=== PATIENT | male | born 2000 | race Caucasian/White ===

== ENCOUNTER 2024-11-29 09:06 | Emergency (ER) | payer OTHER, SELFPAY ==
--- NOTE | ~2024-11-29 | XR_ITS ---
EXAMINATION: XR chest 1V portable DATE: 11/29/2024 09:31 INDICATION: Cough and chest pain. TECHNIQUE: A single frontal view of the chest was obtained. COMPARISON: None. FINDINGS: There are airspace opacities in left upper lobe, consistent with pneumonia. No pleural effu obinna or pneumothorax. The heart size is normal. IMPRESSION: 1. Left upper lobe pneumonia. Reviewed, dictated and finalized at location A. THERAPY CERTIFIED SUPERVISOR
[2024-11-29 09:10] VITALS: BP 138/90; PULSE 84; RESP 16; TEMP 37; O2SAT 98
--- NOTE | 2024-11-29 09:15 | ECG_ITS ---
Test Date: 2024-11-29 09:15:56 Measurements Intervals [place] Rate: 89 P: 62 NJ: 135 QRS: 71 QRSD: 121 T: 35 QT: 334 QTc: 407 Interpretive Statements SINUS RHYTHM POSSIBLE LEFT ATRIAL ENLARGEMENT INCOMPLETE RIGHT BUNDLE BRANCH BLOCK BORDERLINE ST-T WAVE ABNORMALITY- ANTERIOR LEADS BASELINE ARTIFACT- I, II, AVR, AVL, V3 BORDERLINE ECG No previous ECG available for comparison Electronically Signed On 11-29-2024 09:40:14 PAINT BRUSH MAKER by Donta Dodge D.O.
[2024-11-29 09:20] VITALS: O2SAT 99
--- OUTSIDE RECORDS SUMMARY | 2024-11-29 09:30 | XMS_ITS | Continuity of Care Document ---
Author Organization [facility] cine Address [address] [address] Phone Care Team Providers Care Paper Grader Name Role Phone Luciano Lilly DO Unavailable Unavailable Allergies, Adverse Reactions, Alerts Substance Reaction Status Criticality CEPHALEXIN MONOHYDRATE Active No In formation amoxicillin Active No Information Penicillins Active No Information Medications Medication Instructions Dosage Effective Dates (start - stop) Status Comments paroxetine 20 mg tablet take 1 tablet (2 0MG) by oral route every day 20 MG - Active WG methylphenidate ER 20 mg tablet,extended release take 1 tablet (20MG) by oral route every day 20 MG - Active methylphenidate 10 mg tablet take 1 tablet (10MG) by oral route 1 times every day - Active Procedures Procedure Date OFFICE/OUTPATIENT VISIT, EST OFFICE/OUTPATIENT VISIT, NEW Advance Directives Directive Yes / No Effective Date File Name No Information Encounters Encounter Description Practice Location Reason(s) For Visit Diagnoses Date Provider Providers Copied on Encounter [facility], [address], [place], [id number], tel:[phone] [facility] No Information [address]. [address], [place], [id number], [place]. tel:[phone] OFFICE/OUTPAT IENT VISIT, EST [facility], [address], [place], [id number], tel:[phone] [facility] adhd (chief complaint) Attention deficit disorder of childhood with hyperactivity 3 No Information OFFICE/OUTPAT IENT VISIT, NEW [facility], [address] [facility] [address], [place], [place], [id number], [place] tel:[phone] [facility] adhd (chief complaint) Attention deficit disorder of childhood with hyperactivity 3 No Information Family History Family Member Type Diagnosis Age At Onset Problem (finding) Family history of raise d blood lipids Problem (finding) Family history of breas t cancer Problem (finding) No family history of AD D/ADHD Payers Payer name Insurance type Covered alliance party ID Authorjasvir dixon(s) [place] Medicaid MC [id number] Social History Type Description Quantity Date Captured Comments Sex Male Smoking Status No Information Chief Complaint And Reason For Visit No Information Reason For Referral Reason For Referral No Information History Of Present Illness Encounter Date Complaint History Of Prese nt Illness adhd Onset: 5 Years A go. Quality of life: behaviors create problems at home and behaviors create problems at school. It occurs constantly. The problem is improving. Context: behaviors persist > 6 months and behaviors began before age 8. Symptom is aggravated by deadlines, distractions and tasks requiring attention to detail. Relieving factors include stimulant medications. Associated symptoms include bored easily, disorganization, distracted easily, excitability, fidgeting/squirming, restlessness and short attention span. Additional information: pt is needing refill of Methylphenidate. pt denies trouble with sleeping or eating.. adhd Onset: 7 Years A go. Quality of life: behaviors create problems at home, behaviors create problems at school and behaviors create problems socially. Context: behaviors began before age 8. Symptom is aggravated by deadlines, distractions, stress and tasks requiring attention to detail. Relieving factors include stimulant medications. Associated symptoms include bored easily, difficulty waiting turn, disorganization, distracted easily, excitability, fidgeting/squirming, impulsiveness, inattentiveness, loses/forgets things, restlessness, short attention span and talks excessively. Functional Status Date Functional Assessmen t No Information Instructions Date Instruction Additional Infor mation No Information Assessments Type Assessment Date No Information Patient Care Teams Name Effective Dates (start - stop) Status Members No Information
--- OUTSIDE RECORDS SUMMARY | 2024-11-29 09:30 | XMS_ITS | Clinical Summary ---
Author Organization 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 Gender Identity Not on file Sexual Orientation Not on file Last Filed Vital Signs Vital Sign Reading Time Taken Comments Blood Pressure 132/76 04/30/2021 5:29 PM CDT Pulse 96 04/30/2021 5:29 PM CDT Temperature 36.6 ??C (97.9 ??F) 04/30/2021 5:29 PM CD T Respiratory Rate 16 04/30/2021 5:29 PM CDT Oxygen Saturation 99% 04/30/2021 5:29 PM CDT Inhaled Oxygen Concentration - - Weight 69.3 kg (152 lb 12.5 oz) 04/30/2021 5:29 PM CDT Height 182.9 cm (6') 04/30/2021 5:29 PM CDT Body Mass Index 20.72 04/30/2021 5:29 PM CDT Plan of Treatment Not on file Insurance [facility] HMO/PPO Address: [id number] [place] [address] Care Teams Electrical Maintenance Technician Relationship Specialty Start Date End Date No, Physician PCP - General 04/30/21
--- OUTSIDE RECORDS SUMMARY | 2024-11-29 09:30 | XMS_ITS | Referral Summary ---
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 HMO/PPO Address: [id number] [place] [address] Care Teams Geophysical Operator Relationship Specialty Start Date End Date No, Physician PCP - General 04/30/21
--- OUTSIDE RECORDS SUMMARY | 2024-11-29 09:30 | XMS_ITS | Clinical Summary ---
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 Gender Identity Not on file Sexual Orientation Not on file Plan of Treatment Health Maintenance Due Date Last Done Comments Hepatitis C Virus (HCV) Screening 2001 TdaP Immunization 2001 Human Papillomavirus (HPV) Immunization (1 - Male 3-dose series) 2016 Meningococcal B Immunization (1 of 2 - Standard) 2017 Hepatitis B Immunization (1 of 3 - 19+ 3-dose series) 2020 Influenza Immunization (#1) 2024 SARS-COV-2 Immunization ( - season) 2024 Respiratory Syncytial Virus (RSV) Immunization (Adult) (1 - 1-dose 75+ series) 2076 Meningococcal Immunization (ACWY) Aged Out No longer eligible based on patient's age to complete this topic Pneumococcal Immunization Combined Aged Out No longer eligible based on patient's age to complete this topic Rotavirus Immunization Aged Out No lo nger eligible based on patient's age to complete this topic
--- NOTE | 2024-11-29 09:33 | ED_ITS ---
HPI - URI/Sore Throat General Chief Complaint: Upper Respiratory Infection Stated Complaint: cold sx Time Seen by Provider: 11/29/24 09:07 Source: patient Mode of arrival: ambulatory Limitations: no limitations History of Present Illness HPI Narrative: This is a 24-year-old male who presents to the ED for chief complaint of cough and pleuritic chest pain over the past couple of days. Patient states that the cough has been present for the past few days and started to become productive. Reports yellow phlegm with the cough. States that yesterday and today started noticing the cough started hurting in the chest. States that when he coughs he has chest pain that radiates into the intrascapular area. Denies exertional chest pain or shortness of breath. Endorses low-grade fevers with temperatures in the 99-100.2 range. Denies any medical history. Related Data Home Medications ?Medication ?Instructions ?Recorded ?Confirmed ?Last Taken ?Type buspirone 15 mg tablet mg PO 09/09/24 09/10/24 Unknown History quetiapine 25 mg tablet mg PO 09/09/24 09/10/24 Unknown History Allergies Allergy/AdvReac Type Severity Reaction Status Date / Time No Known Allergies Allergy Verified 11/29/24 09:13 Review of Systems Review of Systems: All systems as dictated in HPI [facility] Past Medical History Medical History Trichotillomania Family History Family History Mother Family history of mental disorder Grandparent Family history of mental disorder Hypertension Family history of elevated blood lipids Family history of malignant neoplasm of breast Social History Social History Smoking status: Never smoker Exam Narrative: GENERAL: Well-appearing, well-nourished, and in no acute distress. HEAD: Normocephalic, atraumatic. EYES: PERRLA and EOMI. ENT: Nares clear, no rhinorrhea or epistaxis. Mucous membranes moist. Oropharynx without tonsillar hypertrophy exudate or other lesions. NECK: Supple. No adenopathy or masses. CHEST: No respiratory distress. Clear to auscultation. No wheezes rales or rhonchi HEART: Regular rate and rhythm. No murmur heard. Normal peripheral pulses. ABDOMEN: Soft, nontender, nondistended, normal active bowel sounds. MSK: Normal range of motion. No edema. SKIN: Warm, dry, no rash. NEURO: Alert and oriented x4. No focal deficits. PSYCH: Normal mood and affect. Course Vital Signs Vital signs: Vital Signs Temperature 98.6 F 11/29/24 09:10 Pulse Rate 84 11/29/24 09:10 Respiratory Rate 16 11/29/24 09:10 Blood Pressure 138/90 11/29/24 09:10 Pulse Oximetry 98 11/29/24 09:10 Oxygen Delivery Room Air 11/29/24 09:10 Temperature 98.6 F 11/29/24 09:10 Pulse Rate 84 11/29/24 09:10 Respiratory Rate 16 11/29/24 09:10 Blood Pressure 138/90 11/29/24 09:10 Pulse Oximetry 99 11/29/24 09:20 Oxygen Delivery Room Air 11/29/24 09:20 MDM - URI/Sore Throat MDM Narrative Medical decision making narrative: This is a 24-year-old male who presents to the ED for chief complaint of productive cough and pleuritic chest pain. Vitals are normal. Exam is benign. EKG shows sinus rhythm with nonspecific T-wave changes. Perc rule negative for PE. Chest x-ray shows overt left upper lobe pneumonia which is consistent with his presentation today. Does not appear to be a cardiac related chest pain such as ACS. Was given Toradol here for pain control. Patient will be given Augmentin and doxy cycling prescriptions. Pt will be discharged in stable condition. Return precautions given and supportive measures discussed. Pt is understanding and agreeable with plan for discharge and follow-up with PCP. Lab Data Labs: Lab Results 11/29/24 Range/Units 09:27 Influenza A (RT-PCR) Pending Influenza B (RT-PCR) Pending RSV (RT-PCR) Pending SARS-CoV-2 RNA (RT-PCR) Pending ECG Data EKG #1: ECG completion date: 11/29/24 ECG completion time: 09:15 Prior ECG tracings: not available for review Interpretation: Sinus rhythm Rate [address] and T-wave changes, inversions seen in V3 No acute ischemic findings Discharge Plan Discharge Clinical Impression: Pneumonia Qualifiers: Pneumonia type: due to unspecified organism Laterality: left Lung location: upper lobe of lung Qualified Code(s): J18.9 - Pneumonia, unspecified organism Patient Disposition: Home, Self-Care Condition: Stable Instructions: Antibiotic Form, Bacterial Pneumonia (DC) Additional Instructions: Your exam today does show a pneumonia of the left side. Please take antibiotics as prescribed and follow-up with your PCP on this issue. Continue to take Tylenol and ibuprofen as needed for pain and fevers. If you have any new or worsening symptoms please return to the ER for further evaluation. Patient Language: Armenian Prescriptions: New amoxicillin-pot clavulanate 875-125 mg tablet 1 tablet PO Q12H Qty: 14 0RF doxycycline hyclate 100 mg capsule 100 mg PO BID 7 Days Qty: 14 0RF No Action buspirone 15 mg tablet PO quetiapine 25 mg tablet PO sertraline 100 mg tablet 100 mg PO DAILY 90 Days Qty: 90 3RF Follow-up/Referrals: Angel Quan DO [Primary Care Provider] - Time of Disposition: 09:48
[2024-11-29] MEDS: KETOROLAC 15 MG/ML VIAL (*BKC) IV PUSH (09:35)
[2024-11-29 10:21] LABS: Influenza A QL RT-PCR Negative (Negative); Influenza B QL RT-PCR Negative (Negative); RSV RNA, RT-PCR Negative (Negative); SARS-CoV-2 RNA PCR Negative (Negative)
[2024-11-29 10:27] VITALS: BP 122/81; PULSE 77; RESP 14; O2SAT 98
--- OUTSIDE RECORDS SUMMARY | 2024-11-29 10:36 | XMS_ITS | Continuity of Care Document ---
Author Organization [facility] cine Address [address] [place] [address] Phone Care Team Providers Care Machine Cloth Examiner Name Role Phone Luciano Lilly DO Unavailable [...] Provider Providers Copied on Encounter [facility], [address], [place], [id number], tel:[phone] [facility] No Information [address]. [address], [place], [id number], [place]. tel:[phone] OFFICE/OUTPAT IENT VISIT, EST [facility], [address], [place], [id number], tel:[phone] [facility] adhd (chief complaint) Attention deficit disorder of childhood with hyperactivity 3 No Information OFFICE/OUTPAT IENT VISIT, NEW [facility], [address] [facility] [address], [place], [place], [id number], [place] tel:[phone] [facility] adhd (chief complaint) Attention deficit disorder of childhood with hyperactivity 3 No Information Family History Family Member Type Diagnosis Age At Onset Problem (finding) Family history of raise d blood lipids Problem (finding) Family history of breas t cancer Problem (finding) No family history of AD D/ADHD Payers Payer name Insurance type Covered green party ID Authorjasvir dixon(s) [place] Medicaid MC [id number] Social History Type Description Quantity Date Captured [...]
--- OUTSIDE RECORDS SUMMARY | 2024-11-29 10:37 | XMS_ITS | Referral Summary ---
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 HMO/PPO Address: [id number] [place] [address] Care Teams Display Card Writer Relationship Specialty Start Date End Date No, Physician PCP - General 04/30/21
--- OUTSIDE RECORDS SUMMARY | 2024-11-29 10:37 | XMS_ITS | Clinical Summary ---
Author Organization 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
--- OUTSIDE RECORDS SUMMARY | 2024-11-29 10:37 | XMS_ITS | Clinical Summary ---
Author Organization [facility] Care Team Providers Care Jr. 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
== END 2024-11-29 10:28 | disposition home or self-care (01) ==
PROVIDERS: Emergency Provider Physician Assistant; PCP Family Medicine
DX: J18.9 Pneumonia, unspecified organism (principal); Z20.822 Contact with and (suspected) exposure to COVID-19; F63.3 Trichotillomania; R94.31 Abnormal electrocardiogram [ECG] [EKG]; I45.10 Unspecified right bundle-branch block
CPT/HCPCS: 71045; 87637; 93005; 96374; 99284; J1885